=== PATIENT | male | born 1995 | race African-American/Black ===

== ENCOUNTER 2019-05-13 18:18 | Emergency (ER) | payer OTHER ==
--- NOTE | 2019-05-13 18:30 | PDOC ---
History of Present Illness - General Chief Complaint: Syncope/Near Syncope Stated Complaint: SYNCOPY Time Seen by Provider: 05/13/19 18:25 - History of Present Illness Initial Comments: 05/13/19 19:55 HPI: 24 y/o M with no pmh presenting with syncopal episode. He was taking a warm shower when he felt LH and syncopized as he exited the shower. Lasted 10-15 seconds. He now has a significant ear laceration through the cartilage. His mother found him on the ground and he had an additional syncopal episode while on the ground. Denies any current pain, SIM, LH, chest pain, SOB, palpitations, n /v, incontinence, seizure. Patient also reports URI like symptoms last week that have since completely resolved and has not had normal PO intake yet; denies eating anything today. PMHx: as noted above ROS: as noted SHx: Denies tobacco use; no alcohol use; no rec drugs Allergies: NKDA ROS: GENERAL/CONSTITUTIONAL: No fever or chills. No weakness. HEAD, EYES, EARS, NOSE AND THROAT: No change in vision. No ear pain or discharge. No sore throat. CARDIOVASCULAR: No chest pain or shortness of breath RESPIRATORY: No cough, wheezing, or hemoptysis. GASTROINTESTINAL: No nausea, vomiting, diarrhea or constipation. GENITOURINARY: No dysuria, frequency, or change in urination. MUSCULOSKELETAL: No joint or muscle swelling or pain. No neck or back pain. SKIN: No rash NEUROLOGIC: +LOC; No headache, vertigo, or change in strength/sensation. ENDOCRINE: No increased thirst. No abnormal weight change HEMATOLOGIC/LYMPHATIC: No anemia, easy bleeding, or history of blood clots. ALLERGIC/IMMUNOLOGIC: No hives or skin allergy. PE: GENERAL: Awake, alert, and fully oriented, no acute distress HEAD: Normocephalic EYES: EOMI, sclera anicteric, conjunctiva clear ENT: 2cm lac through the helix involving the cartilage with 1cm depth, actively bleeding, ttp, 2nd inferior superficial lac without cartilage involvement, 2.5cm superficial lac near mastoid; hearing grossly normal, nares patent, oropharynx clear without exudates. Moist mucosa NECK: Normal ROM, no lymphadenopathy LUNGS: No increased work of breathing, symmetrical chest rise, clear to auscultation bilaterally, no wheezes, crackles or rhonchi HEART: Regular rate, regular rhythm, normal S1 and S2, no murmur, peripheral pulses 2+ and equal bilaterally. ABDOMEN: Soft, nondistended, nontender, normoactive bowel sounds. No guarding, no rebound. No masses. No CVAT MUSCULOSKELETAL: Normal inspection, FROM NEUROLOGICAL: Cranial nerves II through XII grossly intact. Normal speech, normal gait, no focal sensorimotor deficits SKIN: Warm, Dry, normal turgor Past History - Past Medical History Allergies/Adverse Reactions: Allergies Allergy/AdvReac Type Severity Reaction Status Date / Time No Known Allergies Allergy Verified 05/13/19 18:31 ED Treatment Course - LABORATORY CBC & Chemistry Diagram: 05/13/19 19:00 05/13/19 19:00 Medical Decision Making - Medical Decision Making 05/13/19 20:27 24 y/o M with no pmh presenting with syncopal episode and left ear lac. VSS, AF. PE with 2cm lac through the helix involving the cartilage with 1cm depth, actively bleeding, ttp, 2nd inferior superficial lac without cartilage involvement, 2.5cm superficial lac near mastoid. -ekg, cxr, cbc, cmp, trop, CT head 05/13/19 20:[address] negative ekg: nsr, nl intervals, no vicki/d cxr: no acute pathology Dr Morel plastics consulted and will evaluate lac for repair given cartilage involvement 05/13/19 21:45 Night team to reassess following laceration repair and to DC Discharge - Discharge Information Problems reviewed: Yes Clinical Impression/Diagnosis: Syncope Qualifiers: Syncope type: unspecified Qualified Code(s): R55 - Syncope and collapse Laceration of ear Qualifiers: Encounter type: initial encounter Laterality: left Qualified Code(s): S01.312A - Laceration without foreign body of left ear, initial encounter Condition: Stable Disposition: HOME - Follow up/Referral Referrals: Derrick Morel MD [Staff Physician] - - Patient Discharge Instructions Patient Printed Discharge Instructions: DI for Syncope in Adults (Fainting), DI for Laceration Repair -- Complex Suture Additional Instructions: Additional Instructions: Please return to the emergency department with any new or worsening symptoms or concerns including fever, pus from wound, worsening redness, worsening pain. Please follow up with Dr Morel the plastic surgeon for re-evaluation of the wound as discussed. Please follow all other recommendation made by Dr Morel as discussed You may take ibuprofen 600mg every 6 hours as needed for pain control - Post Discharge Activity
[2019-05-13 18:32] VITALS: BMI 21.7
[2019-05-13] MEDS ORDERED: SODIUM CHLORIDE 1,000 ML IV STA (19:17)
[2019-05-13] MEDS ORDERED: DEXTROSE 50%-WATER - 25 GM/50 ML VIAL IVPUSH ONE (19:17)
[2019-05-13] MEDS ORDERED: LIDOCAINE 2.5%/PRILOCAINE 2.5% (5 Gram/TUBE) TP ONE ×2 (19:18→19:28)
[2019-05-13] MEDS ORDERED: LIDOCAINE HCL 1%, 10 MG/ML (50 mL VIAL) SQ ONE (19:20)
[2019-05-13] MEDS ORDERED: LIDOCAINE HCL 1%, 10 MG/ML (20ML VIAL) ONE (19:28)
[2019-05-13] MEDS ORDERED: DEXTROSE 50%-WATER - 25 GM/50 ML VIAL ONE (19:28)
--- NOTE | 2019-05-13 19:28 | PDOC ---
Documentation entered by Jackei Cortez SCRIBE, acting as scribe for Yanely Woodard DO. Yanely Woodard DO: This documentation has been prepared by the Diego rojas Xhesika, SCRIBE, under my direction and personally reviewed by me in its entirety. I confirm that the documentation accurately reflects all work, treatment, procedures, and medical decision making performed by me. Attending Attestation - Resident Resident Name: Gonzalez Rhoades - ED Attending Attestation I have performed the following: I have examined & evaluated the patient, The case was reviewed & discussed with the resident, I agree w/resident's findings & plan, Exceptions are as noted - HPI HPI: 05/13/19 18:58 The patient is a 24 year old male with no significant PMH of who presents to the emergency department BIBA for head laceration s/p 2 syncopal episodes. Patient states he was taking a hot steaming shower, came out the shower and syncopized. Pt states his mother heard a loud thumb, went to check in on him and patient then syncopized again. Mother notes when the patient fell he cracked the tile and the dry wall. Pt reports decreased PO intake because he has some URI symptoms. The patient denies chest pain, shortness of breath, headache and dizziness. Denies fever, chills, cough, nausea, vomiting, diarrhea and constipation. Denies dysuria, frequency, urgency and hematuria. Allergies: NKDA - Physicial Exam PE: 05/13/19 19:22 GENERAL: Awake, alert, and fully oriented, in no acute distress HEAD: No signs of trauma EYES: PERRLA, EOMI, sclera anicteric, conjunctiva clear. ENT: + L ear 2.0cm laceration. + 2.5cm laceration on neck . + through and through cartilage ear laceration at the top of L ear. Auricles normal inspection , hearing grossly normal, nares patent, oropharynx clear without exudates. Moist mucosa NECK: Normal ROM, supple, no lymphadenopathy, JVD, or masses LUNGS: Breath sounds equal, clear to auscultation bilaterally. No wheezes, and no crackles HEART: Regular rate and rhythm, normal S1 and S2, no murmurs, rubs or gallops ABDOMEN: Soft, nontender, normoactive bowel sounds. No guarding, no rebound. No masses EXTREMITIES: Normal range of motion, no edema. No clubbing or cyanosis. No cords, erythema, or tenderness NEUROLOGICAL: Cranial nerves II through XII grossly intact. Normal speech SKIN: Warm, Dry, normal turgor, no rashes or lesions noted. - Medical Decision Making 05/13/19 19:23 I, Dr. Yanely Woodard, DO, attest that this document has been prepared under my direction and personally reviewed by me in its entirety. I further attest, that it accurately reflects all work, treatment, procedures and medical decision -making performed by me. a/p: 24yo male with a syncopal episode today -pt with head injury, loc and 2 syncopal episodes -pt with 2 ear lacs and a lac on the neck behind the ear -currently neuro intact -will send labs, ekg, head ct -tetanus is utd -will need 3 lac repairs -pt did not eat today and has felt sick -better today but wasnt eating and drinking much over the weekend -no pleuritic cp -no sob -no f/c, rhinorrhea, sore throat, cough -pt was in the shower when he felt lightheaded and dizzy -orthostatics neg -fingerstick 66 -will start ivf, 1/2 amp d50 -ear cartilage will need repair by plastics 05/13/19 20:06 resident discussed the case with Dr. morel who will come to repair the ear lac that goes through the ear cartilage 05/13/19 20:12 cxr clear cbc reviewed and stable 05/13/19 20:[address] neg tsh normal trop neg 05/13/19 22:30 dr. morel at the bedside to repair the ear lac 05/13/19 22:52 repeat trop neg 05/13/19 23:03 pt feeling much better po challenge given lac repaired keflex for a week bacitracin multiple times a day stable for dc to home and follow up with Dr. Morel in a week Discharge - Discharge Information Problems reviewed: Yes Clinical Impression/Diagnosis: Syncope Qualifiers: Syncope type: unspecified Qualified Code(s): R55 - Syncope and collapse Laceration of ear Qualifiers: Encounter type: initial encounter Laterality: left Qualified Code(s): S01.312A - Laceration without foreign body of left ear, initial encounter Condition: Stable Disposition: HOME - Admission No - Additional Discharge Information Prescriptions: Bacitracin - [Bacitracin Topical Ointment -] 1 applic TP QID #1 tube Cephalexin Monohydrate [Keflex -] 500 mg PO Q6H #28 capsule - Follow up/Referral Referrals: Derrick Morel MD [Staff Physician] - - Patient Discharge Instructions Patient Printed Discharge Instructions: DI for Syncope in Adults (Fainting), DI for Laceration Repair -- Complex Suture, DI for Closed Head Injury Additional Instructions: Additional Instructions: Please return to the emergency department with any new or worsening symptoms or concerns including fever, pus from wound, worsening redness, worsening pain. Please follow up with Dr Morel the plastic surgeon for re-evaluation of the wound as discussed- make the appointment for 1 week follow up. Please follow all other recommendation made by Dr Morel as discussed. Please apply bacitracin 4x per day. Please take the antibiotics as prescribed. Please keep the wound dry for 48 hours. You may take ibuprofen 600mg every 6 hours as needed for pain control - Post Discharge Activity
[2019-05-13 19:39] LABS: BASO % 0.3 % (0-2.0); HEMATOCRIT 43.2 % (35.4-49); HEMOGLOBIN 14.1 GM/dL (11.7-16.9); LYMPH % 38.5 % (8-40); MCH 27.9 pg (25.7-33.7); MCHC 32.6 g/dl (32.0-35.9); MEAN CELL VOLUME 85.7 fl (80-96); MEAN PLT VOLUME 9.8 fl (7.5-11.1); MONO % 11.6 % (3.8-10.2); NEUT % 48.6 % (42.8-82.8); PLATELET COUNT 239 K/MM3 (134-434); RBC 5.05 M/mm3 (4.00-5.60); RDW 14.1 % (11.9-15.9); WHITE BLOOD COUNT 5.3 K/mm3 (4.0-10.0)
[2019-05-13 19:50] LABS: INR 1.09 (0.83-1.09); PROTHROMBIN TIME (PATIENT) 12.9 SEC (9.7-13.0)
[2019-05-13 19:53] LABS: ACTIVATED PTT 30.2 SECONDS (25.2-36.5)
[2019-05-13 20:13] LABS: ALK PHOS 36 U/L (45-117); ANION GAP 5 MMOL/L (8-16); BILIRUBIN,TOTAL 0.4 mg/dL (0.2-1); BLOOD UREA NITROGEN 7.9 mg/dL (7-18); CALCIUM 9.2 mg/dL (8.5-10.1); CHLORIDE 106 mmol/L (98-107); CO2 28 mmol/L (21-32); CREATININE 0.9 mg/dL (0.55-1.3); GLUCOSE,RANDOM 85 mg/dL (74-106); POTASSIUM 3.9 mmol/L (3.5-5.1); SGOT/AST 20 U/L (15-37); SGPT/ALT 24 U/L (13-61); SODIUM 140 mmol/L (136-145); TOT PROT 6.8 g/dl (6.4-8.2)
[2019-05-13] MEDS ORDERED: CEPHALEXIN MONOHYDRATE 500 MG CAPSULE (UD) PO ONE (23:01)
[2019-05-13] MEDS ORDERED: CEPHALEXIN MONOHYDRATE 500 MG CAPSULE (UD) ONE (23:26)
[2019-05-14 02:50] VITALS: BP 126/79; PULSE 62; TEMP 97.9
--- NOTE | 2019-05-14 15:11 | EKG ---
Test Reason : Blood Pressure : / mmHG Vent. Rate : 060 BPM Atrial Rate : 060 BPM P-R Int : 148 ms QRS Dur : 084 ms QT Int : 410 ms P-R-T Axes : 074 059 058 degrees QTc Int : 410 ms NORMAL SINUS RHYTHM NORMAL ECG NO PREVIOUS ECGS AVAILABLE Confirmed by ELA ERAZO MD ([id number]) on 05/14/2019 3:11:40 PM Referred By: Confirmed By:ELA ERAZO MD
--- NOTE | 2019-05-14 18:17 | OP ---
DATE OF OPERATION: 05/13/2019 PROCEDURES: 1. A 3-cm complex, full-thickness, left ear laceration repair. 2. Separate 3-cm simple left ear laceration washout and repair. 3. A 3-cm complex post auricular scalp laceration washout and repair. ATTENDING SURGEON: Sunny Morel MD The patient is seen at the request of referring physician, Yanely Woodard. HISTORY: This is a 24-year-old male who suffered a fall in the shower lacerating full thickness the left ear as well as the post auricular scalp. Brought into the [facility] Emergency Room for evaluation and treatment. PAST MEDICAL HISTORY: Noncontributory. PAST SURGICAL HISTORY: Noncontributory. REVIEW OF SYSTEMS: Negative for any bleeding, coagulopathy, recent fevers, infection, . PHYSICAL EXAMINATION: Head and Neck: Atraumatic with described lacerations. Otherwise, atraumatic. Pupils equally round and reactive to light. Extraocular muscles intact. Neck: Supple and nontender. Heart: Regular rate and rhythm. Lungs: Clear to auscultation. Abdomen: Soft, nontender. Extremities: Warm and well perfused. Patient and family are counseled on risks, benefits, alternatives to washout and repair of lacerations. Understand and agree to proceed. DESCRIPTION OF PROCEDURE: Wounds are copiously irrigated with normal saline. They are injected with a total of 10 mL of 1% lidocaine plain after which, once again, the wounds are copiously irrigated. The complex laceration on the ear is addressed first. The cartilage is carefully aligned in preparation for repair. Repair is performed first on the lateral anterior surface of the ear with a series of interrupted 5-0 Prolene suture. The helix is then repaired aligning the helical rim with a 5-0 Prolene suture. The posterior medial surface of the ear is repaired with a running 4-0 nylon suture. The 2nd simple laceration on the ear is likewise irrigated, and it is a skin repair with a running 5-0 Prolene suture. The post auricular scalp laceration is then copiously irrigated. The fibers of the trapezius muscle and galea are approximated with a 4-0 Vicryl suture. The skin is approximated with a running 4-0 nylon suture. Wounds were dressed with bacitracin. Patient is placed on Keflex. Wound care instructions are given. The patient to follow up with Dr. Morel in 1 week. SUNNY MOREL M.D. GARRY/[id number]
== END 2019-05-13 23:40 | disposition home or self-care (01) ==
LOC: JER 18:18
PROC: 0JQ10ZZ Repair Face Subcutaneous Tissue and Fascia, Open Approach (ICD-10-PCS; principal; 2019-05-13)
DX: R55 Syncope and collapse (principal); S01.312A Laceration without foreign body of left ear, initial encounter; W18.2XXA Fall in (into) shower or empty bathtub, initial encounter; Y93.E1 Activity, personal bathing and showering; Y92.018 Other place in single-family (private) house as the place of occurrence of the external cause; Y99.8 Other external cause status
CPT/HCPCS: 36415; 70450-TC; 71045-TC-FY; 80053; 82550; 82962; 83735; 84443; 84484; 85025; 85610; 85730; 93005; 93010; 99285-25; J7030